=== PATIENT | female | born 1985 | race African-American/Black ===

== ENCOUNTER 2017-05-07 04:35 | Emergency (ER) | payer OTHER ==
[~2017-05-07] VITALS: Ht 165.1 cm; Wt 127.0 kg
[~2017-05-07 04:35] MED LIST: ACETAMINOPHEN-1 EAC1 PO; APAP500 PO; CEFTIN500 MG PO; CEPACOL SORE T1 EAC7 PO; COLACE 100 MG100 MG PO; DETROL2 MG; FLEXERIL PO; HYDROCODONE-AP1 EAC6 PO; HYDROCORTISONE30 G9 RE; IBUPROFEN 800800 M1 PO; IMITREX100 MG PO; IRON325 PO; LANOLIN56 GM; MACROBID 100 M100 M1 PO; MAXZIDE-25 MG1 EACH PO; MOBIC15 MG PO; MUCINEX600 MG PO; NAPROSYN500 MG PO; PERCOCET 5-3251 EACH PO; PREDNISONE50 MG PO; PRENATAL; PROAIR HFA8.5 GM IH; TUCKS MEDICATE1 EAC1; VISTARIL 25 MG25 M1 PO; VITAMIN D1000 UNI1 PO; ZOFRAN4 MG PO; ZPAK; ZPAK PO
[2017-05-07] MEDS ORDERED: MAGOX 400400 MG PO (04:59)
[2017-05-07] MEDS ORDERED: MAXZIDE-25 MG1 EACH PO (04:59)
[2017-05-07] MEDS ORDERED: VITAMIN D1000 UNI1 PO (04:59)
[2017-05-07] MEDS ORDERED: NAPROSYN500 MG PO (05:56)
[2017-05-07] MEDS ORDERED: NORCO 5-325 TA1 EACH PO (05:56)
[2017-05-07] MEDS ORDERED: DYAZIDE 37.5-21 EACH PO (06:43)
== END 2017-05-07 06:53 | disposition home or self-care (01) ==
LOC: ER 04:35
DX: S40.011A Contusion of right shoulder, initial encounter (principal); S40.021A Contusion of right upper arm, initial encounter; S29.012A Strain of muscle and tendon of back wall of thorax, initial encounter; F10.99 Alcohol use, unspecified with unspecified alcohol-induced disorder; Z98.890 Other specified postprocedural states; Z88.1 Allergy status to other antibiotic agents; Z88.0 Allergy status to penicillin; Y08.89XA Assault by other specified means, initial encounter

== ENCOUNTER 2019-08-07 20:06 | Emergency (ER) | payer OTHER ==
[~2019-08-07] VITALS: Ht 165.1 cm; Wt 149.7 kg
[~2019-08-07 20:06] MED LIST changes: +DYAZIDE 37.5-21 EACH PO; +MAGOX 400400 MG PO; +NORCO 5-325 TA1 EACH PO
[2019-08-07] MEDS ORDERED: TRAMADOL 50 MG50 MG PO (22:12)
[2019-08-07] MEDS ORDERED: IBUPROFEN 600600 M1 PO (22:12)
[2019-08-07 22:57] VITALS: BP 153/101
== END 2019-08-07 23:00 | disposition home or self-care (01) ==
LOC: ER 20:06
DX: R07.89 Other chest pain (principal); M25.561 Pain in right knee; M25.562 Pain in left knee; Z88.0 Allergy status to penicillin; Z88.1 Allergy status to other antibiotic agents; W01.0XXA Fall on same level from slipping, tripping and stumbling without subsequent striking against object, initial encounter; Y92.89 Other specified places as the place of occurrence of the external cause; Y93.89 Activity, other specified; Y99.8 Other external cause status

== ENCOUNTER 2020-01-02 11:53 | Emergency (ER) | payer OTHER ==
[~2020-01-02] VITALS: Ht 167.6 cm; Wt 127.0 kg
--- NOTE | ~2020-01-02 | EKG ---
[facility] [place] [address] ELECTROCARDIOGRAM REPORT Name: DAVELUKASZ MARROQUIN Room #: DEP [facility]#: [id number] Admission: 01/02/20 Attend Phys: Discharge: 01/02/20 Date of : 81 Report #: [id number] THIS REPORT FOR: cc: [facility] - Clinic physician unknown [facility] - Clinic physician unknown Carol Medina MD ~ THIS REPORT FOR: //name// [facility] ED Test Date: 2020-01-02 Test Time: 12:06:35 Pat Name: LUKASZ ACOSTA Department: Room: Gender: F [employer]: TRAY : 1985 Requested By: Javier Mott Order Number: [id number] MD: Measurements Intervals Gordon Rate: 92 P: 47 FL: 168 QRS: 25 QRSD: 84 T: 11 QT: 335 QTc: 415 Interpretive Statements Sinus rhythm Left atrial enlargement Compared to ECG 05/01/2016 05:50:06 Atrial abnormality now present [email or web address] By: [id number] Epiphany MD Carol /EPI
[~2020-01-02 11:53] MED LIST changes: +IBUPROFEN 600600 M1 PO; +TRAMADOL 50 MG50 MG PO
[2020-01-02 12:22] LABS: HEMATOCRIT 37.8 % (37.0-47.0); HEMOGLOBIN 12.9 gm/dL (12.0-15.0); MCH 34.7 pg (26.0-34.0); MCV 102.2 fL (80.0-100.0); PLATELET COUNT 243 thou/uL (150-400); RDW 14.1 % (10.5-14.5); WBC 6.1 thou/uL (4.0-11.0)
[2020-01-02 12:32] LABS: ANION GAP 9 mmol/L (7-16); BUN 7 mg/dL (7-18); CALCIUM 8.5 mg/dL (8.5-10.1); CHLORIDE 98 mmol/L (98-107); CO2 25 mmol/L (21-32); CREATININE 0.9 mg/dL (0.6-1.0); GLUCOSE 105 mg/dL (74-106); POTASSIUM 4.3 mmol/L (3.5-5.1); SODIUM 132 mmol/L (136-145)
[2020-01-02 12:42] LABS: ALBUMIN 3.3 g/dL (3.4-5.0); SGOT 21 U/L (15-37); SGPT 27 U/L (30-65); TOTAL BILIRUBIN 0.4 mg/dL (<0.1-1.0); TOTAL PROTEIN 8.2 g/dL (6.4-8.2); TROPONIN-I <0.06 ng/mL (<0.06)
[2020-01-02 12:49] LABS: ABSOLUTE NEUTROPHILS 4.9 thou/uL (1.4-8.2); ATYPICAL LYMPHS 3 %
[2020-01-02 12:50] LABS: MACROCYTES 1+; PLATELET ESTIMATE NORMAL
[2020-01-02 12:51] LABS: ANISOCYTOSIS SLIGHT
[2020-01-02] MEDS ORDERED: TAMIFLU75 MG PO ×3 (15:29→15:40)
[2020-01-02] MEDS ORDERED: PROMETH-CODEIN 65 ML PO (15:29)
[2020-01-02] MEDS ORDERED: VENTOLIN HFA 1818 GM INH (15:29)
[2020-01-02] MEDS ORDERED: VIBRAMYCIN 100100 M2 PO (15:29)
[2020-01-02] MEDS ORDERED: ZPAK PO (15:38)
[2020-01-02 15:52] VITALS: BP 128/87
== END 2020-01-02 15:53 | disposition home or self-care (01) ==
LOC: ER 11:53
PROVIDERS: Physician Assistant
DX: J10.1 Influenza due to other identified influenza virus with other respiratory manifestations (principal); M25.472 Effusion, left ankle; M25.471 Effusion, right ankle; Z88.0 Allergy status to penicillin; Z88.1 Allergy status to other antibiotic agents

== ENCOUNTER 2020-01-17 18:14 | Emergency (ER) | payer OTHER ==
[~2020-01-17] VITALS: Ht 167.6 cm; Wt 131.5 kg
[~2020-01-17 18:14] MED LIST changes: +PROMETH-CODEIN 65 ML PO; +TAMIFLU75 MG PO; +VENTOLIN HFA 1818 GM INH; +VIBRAMYCIN 100100 M2 PO
[2020-01-17] MEDS ORDERED: IBUPROFEN 600600 M1 PO (19:20)
[2020-01-17] MEDS ORDERED: NORCO 5-325 TA1 EAC1 PO (19:20)
[2020-01-17 19:54] VITALS: BP 157/102
== END 2020-01-17 19:56 | disposition home or self-care (01) ==
LOC: ER 18:14
DX: K13.79 Other lesions of oral mucosa (principal); K02.9 Dental caries, unspecified; Z88.3 Allergy status to other anti-infective agents; Z88.0 Allergy status to penicillin; E55.9 Vitamin D deficiency, unspecified

== ENCOUNTER 2020-05-08 03:04 | Emergency (ER) | payer OTHER ==
[~2020-05-08] VITALS: Ht 165.1 cm; Wt 183.5 kg
[~2020-05-08 03:04] MED LIST changes: +NORCO 5-325 TA1 EAC1 PO
[2020-05-08] MEDS ORDERED: VITAMIN D310 MC2 PO (03:21)
[2020-05-08] MEDS ORDERED: SUPER THERAVIT1 EACH PO (03:22)
[2020-05-08] MEDS ORDERED: DYRENIUM50 MG PO (03:22)
[2020-05-08] MEDS ORDERED: BACTRIM DS TAB1 EAC1 PO (03:23)
[2020-05-08] MEDS ORDERED: CLEOCIN HCL150 MG PO (03:30)
[2020-05-08 03:36] VITALS: BP 176/101
== END 2020-05-08 03:45 | disposition home or self-care (01) ==
LOC: ER 03:04
DX: K04.7 Periapical abscess without sinus (principal); Z98.890 Other specified postprocedural states; Z79.899 Other long term (current) drug therapy; Z79.2 Long term (current) use of antibiotics; Z88.0 Allergy status to penicillin; Z88.1 Allergy status to other antibiotic agents